=== PATIENT | male | born 1945 | race Caucasian/White ===

== ENCOUNTER 2017-11-07 06:26 | Emergency (ER) | payer MEDICARE, OTHER ==
[2017-11-07 06:36] VITALS: RESP 16; TEMP 98.3; O2SAT 98
[2017-11-07 07:38] LABS: URINE BACTERIA RARE (<OCC); URINE BILIRUBIN NEGATIVE (NEGATIVE); URINE BLOOD 2+ (NEGATIVE); URINE CLARITY Clear (Clear); URINE COLOR Yellow (YELLOW); URINE GLUCOSE (UA) NORMAL (Normal); URINE LEUKOCYTE ESTERASE NEG Leu/uL (Negative); URINE NITRATE NEGATIVE (NEGATIVE); URINE PROTEIN NEGATIVE (NEGATIVE); URINE UROBILINOGEN NORMAL mg/dL (0.2-1.0)
--- NOTE | 2017-11-07 09:26 | C.PDOC ---
History Of Present Illness 72-year-old male, presents to the emergency department with complaints of lower abdominal discomfort and urinary retention. Patient notes that he had catheter removed by Dr Licea, yesterday at noon after being in for one week. Patient has not urinated since, resulting in him coming to ED for evaluation. Denies nausea/vomiting, fevers or chills. No other complaints at this time. Time Seen by Provider: 11/07/17 07:05 Chief Complaint (Nursing): Abdominal Pain History Per: Patient History/Exam Limitations: no limitations Onset/Duration Of Symptoms: Days Current Symptoms Are (Timing): Still Present Past Medical History Reviewed: Historical Data, Nursing Documentation, Vital Signs Vital Signs: Last Vital Signs Temp 98.3 F 11/07/17 06:34 Pulse 96 H 11/07/17 06:34 Resp 16 11/07/17 06:34 BP 118/72 11/07/17 06:34 Pulse Ox 98 11/07/17 09:37 - Medical History PMH: HTN, Hypercholesterolemia Surgical History: Cholecystectomy Family History: States: No Known Family Hx - Social History Hx Alcohol Use: No Hx Substance Use: No Review Of Systems Except As Marked, All Systems Reviewed And Found Negative. Constitutional: Negative for: Fever Cardiovascular: Negative for: Chest Pain Respiratory: Negative for: Shortness of Breath Gastrointestinal: Positive for: Abdominal Pain. Negative for: Nausea, Vomiting Genitourinary: Negative for: Dysuria, Frequency, Incontinence, Hematuria, Penile Discharge, Penile Pain Neurological: Negative for: Weakness, Headache, Dizziness Physical Exam - Physical Exam Appears: Non-toxic, No Acute Distress Skin: Normal Color, Warm, Dry, No Rash Head: Normacephalic Eye(s): bilateral: PERRL Nose: Normal Oral Mucosa: Moist Lips: Normal Appearing Neck: Normal ROM Cardiovascular: Rhythm Regular, No Murmur Respiratory: Normal Breath Sounds, No Accessory Muscle Use Gastrointestinal/Abdominal: Soft, Tenderness (mild, suprapubic), Distention, No Guarding, No Rebound Extremity: Normal ROM, No Deformity, No Swelling Neurological/Psych: Oriented x3, Normal Speech ED Course And Treatment O2 Sat by Pulse Oximetry: 98 (RA) Pulse Ox Interpretation: Normal Progress Note: Berg catheter inserted by RN and 1800mL of urine obtained. UA and Urine culture ordered and reviewed. Patient treated with Cipro and Flomax. Reassessment Condition: Improved - Physician Consult Information Physician Contacted: John Licea Outcome Of Conversation: Discussed patient with his urologist, would like patient to be discharged home with leg bag, and to call his office when he gets home for follow up. Disposition Counseled Patient/Family Regarding: Studies Performed, Diagnosis, Need For Followup, Rx Given - Disposition Referrals: John Licea MD [Staff Provider] - Disposition: HOME/ ROUTINE Disposition Time: 09:25 Condition: STABLE Additional Instructions: CALL DR LICEA'S OFFICE WHEN YOU GET HOEM TO SCHEDULE FOLLOW UP CONTINUE YOUR FLOMAX USE ANTIBIOTIC UNTIL FINISHED RETURN TO ER IF SYMPTOMS RETURN/WORSEN Prescriptions: Ciprofloxacin [Cipro] 1 tab PO BID #14 tab Instructions: Urinary Retention (DC) Forms: [employer] (Armenian) Print Language: [place] - Clinical Impression Clinical Impression: Urinary retention, UTI (urinary tract infection) - Scribe Statement The provider has reviewed the documentation as recorded by the Scribe (Vicki Cardona) All medical record entries made by the Scribe were at my direction and personally dictated by me. I have reviewed the chart and agree that the record accurately reflects my personal performance of the history, physical exam, medical decision making, and the department course for this patient. I have also personally directed, reviewed, and agree with the discharge instructions and disposition.
[2017-11-07 10:34] VITALS: BP 128/73; PULSE 88
== END 2017-11-07 10:53 | disposition home or self-care (01) ==
LOC: C.ER 06:26
DX: N39.0 Urinary tract infection, site not specified (principal); R33.9 Retention of urine, unspecified; I10 Essential (primary) hypertension; E78.00 Pure hypercholesterolemia, unspecified

== ENCOUNTER 2017-11-10 12:03 | Day surgery (SDC) | payer MEDICARE, OTHER ==
[2017-11-10 12:14] VITALS: BMI 31.8
[2017-11-10 12:28] LABS: BASO # 0.1 K/uL (0.0-0.2); BASO % 1.4 % (0.0-2.0); EOS # 0.3 K/uL (0.0-0.7); EOS % 3.6 % (0.0-4.0); HEMOGLOBIN 13.9 g/dL (12.0-18.0); LYMPH # 2.3 K/uL (1.0-4.3); LYMPH % 28.6 % (20.0-40.0); MEAN CELL VOLUME 78.5 fL (80.0-94.0); MEAN CORPUSCULAR HEMOGLOBIN 25.9 pg (27.0-31.0); MEAN PLATELET VOLUME 9.3 fL (7.2-11.7); MONO # 0.4 K/uL (0.0-0.8); MONO % 5.5 % (0.0-10.0); NEUT # 4.8 K/uL (1.8-7.0); NEUT % 60.9 % (50.0-75.0); NRBC % 0.1 % (0.0-2.0); RBC 5.37 Mil/uL (4.40-5.90); RED CELL DISTRIBUTION WIDTH 14.1 % (11.5-14.5); WHITE BLOOD COUNT 7.9 K/uL (4.8-10.8)
[2017-11-10 12:48] LABS: BLOOD UREA NITROGEN 14 mg/dL (9-20); GFR AFRICAN-AMERICAN > 60; GFR NON-AFRICAN AMERICAN > 60
[2017-11-10] MEDS ORDERED: Midazolam 2 MG/2 ML VIAL ONE (14:10)
[2017-11-10] MEDS ORDERED: Propofol 10 mg/ml Inj (20 ML) ONE (14:10)
[2017-11-10] MEDS ORDERED: HYDROmorphone 0.5 mg/0.5 ml ISec IVP PRN (14:29)
[2017-11-10] MEDS ORDERED: Neostigmine Methylsulfate 3mg/3ml Syringe IV ONE (15:35)
[2017-11-10] MEDS ORDERED: cefTRIAXone IV 1 gm in Dextros 50 ML IVPB ONE (16:00)
[2017-11-10] MEDS ORDERED: Ciprofloxacin 400mg/200ml D5W 400 MG/200 ML BAG IVPB SCH (17:00)
[2017-11-10 17:45] VITALS: RESP 20
[2017-11-10] MEDS: Oxycodone/Acetaminophen 5/325 mg Tab PO PRN ×2 (18:00→22:06)
[2017-11-10] MEDS: Ciprofloxacin 400mg/200ml D5W 400 MG/200 ML BAG IVPB SCH (19:20)
[2017-11-11] MEDS: Ciprofloxacin 400mg/200ml D5W 400 MG/200 ML BAG IVPB SCH ×2 (07:52→19:27)
[2017-11-11] MEDS: Oxycodone/Acetaminophen 5/325 mg Tab PO PRN ×3 (07:55→17:36)
[2017-11-11 12:12] LABS: BASO # 0.1 K/uL (0.0-0.2); BASO % 0.7 % (0.0-2.0); EOS # 0.3 K/uL (0.0-0.7); EOS % 2.8 % (0.0-4.0); HEMOGLOBIN 13.3 g/dL (12.0-18.0); LYMPH # 1.5 K/uL (1.0-4.3); LYMPH % 14.4 % (20.0-40.0); MEAN CELL VOLUME 78.8 fL (80.0-94.0); MEAN CORPUSCULAR HEMOGLOBIN 25.5 pg (27.0-31.0); MEAN CORPUSCULAR HGB CONC 32.4 g/dL (33.0-37.0); MEAN PLATELET VOLUME 9.5 fL (7.2-11.7); MONO # 0.5 K/uL (0.0-0.8); MONO % 5.2 % (0.0-10.0); NEUT # 7.9 K/uL (1.8-7.0); NEUT % 76.9 % (50.0-75.0); RBC 5.22 Mil/uL (4.40-5.90); RED CELL DISTRIBUTION WIDTH 14.2 % (11.5-14.5); WHITE BLOOD COUNT 10.3 K/uL (4.8-10.8)
[2017-11-11 12:30] LABS: ALBUMIN 3.5 g/dL (3.5-5.0); ALT/SGPT 122 U/L (21-72); AST/SGOT 103 U/L (17-59); BLOOD UREA NITROGEN 14 mg/dL (9-20); GFR AFRICAN-AMERICAN > 60; GFR NON-AFRICAN AMERICAN > 60
[2017-11-12] MEDS: Oxycodone/Acetaminophen 5/325 mg Tab PO PRN ×3 (01:21→18:05)
[2017-11-12] MEDS: Ciprofloxacin 400mg/200ml D5W 400 MG/200 ML BAG IVPB SCH ×2 (06:15→21:20)
[2017-11-12] MEDS ORDERED: Magnesium Citrate Oral SOL (300 ml) PO ONE (06:44)
[2017-11-12] MEDS ORDERED: Magnesium Hydroxide Susp 30 ml UD PO ONE ×2 (13:25→18:00)
[2017-11-13] MEDS: Oxycodone/Acetaminophen 5/325 mg Tab PO PRN ×3 (02:03→13:18)
[2017-11-13] MEDS: Ciprofloxacin 400mg/200ml D5W 400 MG/200 ML BAG IVPB SCH (06:57)
--- NOTE | 2017-11-13 09:29 | PCM.URO ---
Urology Progress Note - Objective Lab Studies: Reviewed (full notes dictated already) Intake & Output: Intake & Output 11/12/17 11/13/17 11/13/17 18:59 06:59 18:59 Intake Total 550 1000 440 Output Total 61 50 Balance 550 939 390 Intake: Intake, IV Amount 100 200 200 Right External Jugular 100 200 200 Oral 450 800 240 Output: Urine 60 50 Urine, Voided 60 50 Stool 1 Other: # Voids Urine, Voided 0 1 # Bowel Movements 0 Vital Signs: Vital Signs - 24 hr 11/12/17 11/12/17 11/13/17 09:35 15:15 00:00 Temperature 98.3 F 98.3 F 98.3 F Pulse Rate 83 84 91 H Respiratory 20 20 20 Rate Blood Pressure 125/73 118/67 136/78 O2 Sat by Pulse 98 97 98 Oximetry 11/13/17 07:55 Temperature 98.2 F Pulse Rate 88 Respiratory 20 Rate Blood Pressure 133/70 O2 Sat by Pulse 98 Oximetry
[2017-11-13] MEDS ORDERED: Pneumococcal 23-Valent Vaccine IM ONE (10:00)
--- NOTE | 2017-11-13 12:08 | PN ---
See the admission history and physical on the patient from 11/10/2017. The patient underwent a PVP GreenLight laser TURP, no complications; but he is still having difficulty voiding and is not comfortable. At this point, we are going to hold off insertion of the Berg catheter. We are going to consider it later today. We will monitor the patient closely. He is having difficulty with his bowel movements as well. Once we get this more regulated, we are going to make further progress. Further plan is to follow. Lowell Estevez MD
--- NOTE | 2017-11-13 13:25 | PN ---
DATE: See the admission history and physical and see the operative note. SUBJECTIVE: Mr. Lynn does not feel comfortable leaving with the Berg catheter. At this point, I agree with the patient in that he came in with a severe paraphimosis from an indwelling Berg catheter. The last time we saw him, the catheter was in place and draining well. He has been through a lot and he has been having a lot of discomfort. He had some mild blood in the urine. We will leave him with the CBI. We are going to admit him to the hospital for further observation and we will allow the patient to heal prior to discharge home. Because he and his are saying that they are not really able to care for the catheter well. Given the fact that he came in with the catheter and not looking perfect. So the plan at this point is inpatient management until the patient is more comfortable and able to void. Further plans will follow. Lowell Estevez MD
[2017-11-13 15:54] VITALS: BP 110/71; PULSE 91; TEMP 97.9; O2SAT 97
--- NOTE | 2017-11-13 19:08 | OP ---
PROCEDURE DATE: PREOPERATIVE DIAGNOSES: 1. Urinary retention, voiding dysfunction. 2. Hematuria. 3. Paraphimosis. POSTOPERATIVE DIAGNOSES: 1. Urinary retention, voiding dysfunction. 2. Hematuria. 3. Paraphimosis. PROCEDURE: 1. Reduction of paraphimosis. 2. Photo-Selective vaporization GreenLight laser transurethral resection of the prostate. SURGEON: Lowell Estevez MD COMPLICATIONS: There were no complications. BLOOD LOSS: Less than 50 cc. (I do want to mention though that it is a fairly juicy, bloody prostate). See the body of the report for further details. At the termination of procedure,the patient is wide open from to the bladder neck. There are no complications. INDICATIONS: Review the history and physical for further details. A very pleasant gentleman who initially presented to my office with urinary retention on Monday. We discussed the options. I wanted to give him medication and a voiding trial. He failed this. So, he is now here with an indwelling Berg catheter. He apparently has seen another urologist before me. He has long and follows gallbladder work. See the previous notes. After discussing all the options, risk, benefits, and alternatives of procedure, he agreed for PVP, GreenLight laser, TURP. Again, I explained to the patient it is sometimes more time in medications, but really he and his are not able to live with the catheter, just putting the catheter even with lidocaine was very difficult for the patient. At this point, he presents here to the hospital today with a really tremendous amount of paraphimosis and discomfort with the catheter. (We were able to reduce the paraphimosis. See the body of the report). UROLOGY OPERATIVE FINDINGS: 1. Severe paraphimosis that we were able to reduce. 2. Visually occlusive prostate that is juicy and bloody. 3. Just picking up the catheter and examining, there is some mild bleeding and erythema. Within the bladder, there are no bladder tumors identified. Everything else within normal limits. A heavily trabeculated bladder. At the termination of the procedure, there is no bleeding and the verumontanum is wide open. Multiple pictures were taken and saved and all the gross anatomy landmarks were all intact postoperatively. PROCEDURE IN DETAIL: After obtaining informed consent, the patient was placed on the table. Routine monitors were placed. Time-out was called. We confirmed that antibiotics were given. Prophylactic antibiotics were used. Post antibiotics, the patient at home. The first thing, we introduced the cystoscope under direct vision and with a continuous flow, we used the visual obturator and we identified our landmarks. We identified the bladder neck, again just picking up the catheter and inspecting, there was a lot of erythema and even bleeding. No one pumping vessel, it is just a juicy prostate. We now inspected with the obturator. There was no bladder tumor. There was some bladder erythema. We began between 5 and 7, and we were going carefully, quickly, meticulously, trying to achieve hemostasis every step along the way, working as quickly as possible in this case between the 5 and 7 positions[address] We worked our way on the floor. We keep checking on landmarks. We go way back to the verumontanum. We worked 7 to 11, 5 to 1. Once we had nicely opened along between 1 and 11, we turned our attention anteriorly between 11 and 1. Carefully, slowly, but achieving hemostasis. We keep checking our landmarks. At this point, we reinspected, it was nicely wide open. Pictures were taken and saved. We achieved coagulation. We both vapoured and coagulated. All landmarks were intact. At this point, we inserted the Berg catheter with a moderate amount of traction. The bag was about 50 to 60 cc in the balloon. We reduced the paraphimosis carefully, gently, and we wrapped with Kerlix. Overall, the patient tolerated without further complications. He was brought to the recovery room in stable condition having tolerated without further complications. Lowell Estevez MD
== END 2017-11-13 17:30 | disposition home or self-care (01) ==
LOC: C.SDS 12:03 → C.3T 15:43 → C.SDS 11-13 17:30
PROVIDERS: ATTEND Urology
DX: N47.2 Paraphimosis (principal); R33.9 Retention of urine, unspecified; N40.1 Benign prostatic hyperplasia with lower urinary tract symptoms; T83.098A Other mechanical complication of other urinary catheter, initial encounter; R31.9 Hematuria, unspecified; Z23 Encounter for immunization
CPT/HCPCS: 36415; 52648; 54450; 80048; 80053; 85025; 90732; G0009; J0744